=== PATIENT | male | born 2000 | race Caucasian/White ===

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

== ENCOUNTER → 2023-03-27 | Day surgery (SDC) | payer BC, OTHER ==
[~2023-03-27] MED LIST changes: -FENTANYL CITRATE/PF 100MCG/2 ML INJ ONE; +HYOSCYAMINE SULFATE 0.5 MG/ML INJ ONE; +LACTATED RINGER'S 1,000 ML ONE; -LIDOCAINE HCL 2% LOCAL INJ 5 ML SDV VIAL INJ ONE; -MIDAZOLAM HCL 2 MG/2 ML VIAL ONE; +ONDANSETRON HCL INJ 2MG/ML 2ML 2 MG/ML VIAL ONE; -PANTOPRAZOLE 40 MG 10ML VIAL ONE; +PROPOFOL IV EMULSION 100 ML IV ONE
[2023-03-27 09:33] VITALS: TEMP 97.3
[2023-03-27 10:15] VITALS: BP 108/73; PULSE 74; RESP 18; O2SAT 99
[2023-03-30 13:12] LABS: ENDOMYSIAL ANTIBODIES, IGA Negative (Negative)
== END | disposition home or self-care (01) ==
LOC: OR 07:08
PROVIDERS: ATTEND Internal Medicine Gastroenterology
DX: K29.60 Other gastritis without bleeding (principal); Z86.010 Personal history of colon polyps; K51.90 Ulcerative colitis, unspecified, without complications; K20.90 Esophagitis, unspecified without bleeding; K21.9 Gastro-esophageal reflux disease without esophagitis; K62.89 Other specified diseases of anus and rectum; K59.00 Constipation, unspecified; Z87.11 Personal history of peptic ulcer disease; R63.4 Abnormal weight loss; L40.9 Psoriasis, unspecified; F32.A Depression, unspecified; F17.290 Nicotine dependence, other tobacco product, uncomplicated; Z88.2 Allergy status to sulfonamides; Z86.16 Personal history of COVID-19
CPT/HCPCS: 43239; 43450; 45380; 82784; 83516; 83630; 83993; 86140; 86256; 87045; 87177; 87324; 87328; 87449; C9113; J1980; J2405; J2704 ×2; J7121; 45378